=== PATIENT | female | born 1985 | race Caucasian/White ===

== ENCOUNTER → 2023-08-20 11:11 | Outpatient (REF) | payer BC, SELFPAY | LOC: PNTC 11:11 | PROVIDERS: ATTENDING PHYSICIAN Obstetrics & Gynecology | DX: Z36.0 Encounter for antenatal screening for chromosomal anomalies (principal); Z36.82 Encounter for antenatal screening for nuchal translucency | CPT/HCPCS: 76801; 76813 ==

== ENCOUNTER → 2023-09-10 10:43 | Outpatient (REF) | payer BC, SELFPAY | LOC: PNTC 10:43 | PROVIDERS: ATTENDING PHYSICIAN Obstetrics & Gynecology | DX: O99.210 Obesity complicating pregnancy, unspecified trimester (principal); O09.529 Supervision of elderly multigravida, unspecified trimester | CPT/HCPCS: 76805 ==

== ENCOUNTER → 2023-10-08 10:54 | Outpatient (REF) | payer BC, SELFPAY | LOC: PNTC 10:54 | PROVIDERS: ATTENDING PHYSICIAN Obstetrics & Gynecology | DX: O09.529 Supervision of elderly multigravida, unspecified trimester (principal); O99.210 Obesity complicating pregnancy, unspecified trimester | CPT/HCPCS: 76811 ==

== ENCOUNTER → 2023-12-01 14:12 | Outpatient (REF) | payer BC, SELFPAY | LOC: PNTC 14:12 | PROVIDERS: ATTENDING PHYSICIAN Obstetrics & Gynecology | DX: O99.210 Obesity complicating pregnancy, unspecified trimester (principal); O09.519 Supervision of elderly primigravida, unspecified trimester | CPT/HCPCS: 76816 ==

== ENCOUNTER → 2024-01-07 08:48 | Outpatient (REF) | payer BC, SELFPAY | LOC: PNTC 08:48 | PROVIDERS: ATTENDING PHYSICIAN Obstetrics & Gynecology | DX: O09.519 Supervision of elderly primigravida, unspecified trimester (principal); O99.210 Obesity complicating pregnancy, unspecified trimester | CPT/HCPCS: 59025; 76815 ==

== ENCOUNTER → 2024-01-21 09:00 | Outpatient (REF) | payer BC, SELFPAY | LOC: PNTC 09:00 | PROVIDERS: ATTENDING PHYSICIAN Obstetrics & Gynecology | DX: O09.519 Supervision of elderly primigravida, unspecified trimester (principal); R77.2 Abnormality of alphafetoprotein | CPT/HCPCS: 59025; 76815 ==

== ENCOUNTER → 2024-02-11 08:49 | Outpatient (REF) | payer BC, SELFPAY | LOC: PNTC 08:49 | PROVIDERS: ATTENDING PHYSICIAN Obstetrics & Gynecology | DX: O09.519 Supervision of elderly primigravida, unspecified trimester (principal) | CPT/HCPCS: 59025; 76815 ==

== ENCOUNTER → 2024-02-18 09:12 | Outpatient (REF) | payer BC, SELFPAY | LOC: PNTC 09:12 | PROVIDERS: ATTENDING PHYSICIAN Obstetrics & Gynecology | DX: O99.210 Obesity complicating pregnancy, unspecified trimester (principal); O09.529 Supervision of elderly multigravida, unspecified trimester | CPT/HCPCS: 59025; 76815 ==

== ENCOUNTER 2024-02-23 19:21 | Inpatient (IN) | payer BC, SELFPAY ==
[2024-02-23 19:38] VITALS: BP 124/73; BMI 35.1
[2024-02-23 20:00] LABS: % Basophils 0.4 % (0-2); % Eosinophils 0.4 % (0-6); % Lymphocytes 20.1 % (20.5-51.1); % Monocytes 6.2 % (1.7-9.3); % Neutrophils 71.9 % (42.2-75.2); Absolute Immature Granulocytes 0.1 10^3/uL (0-0.05); Absolute Lymphocytes 2.2 10^3/uL (1.2-3.4); Absolute Monocytes 0.7 10^3/uL (0.1-0.6); Absolute Neutrophils 7.8 10^3/uL (1.4-6.5); Hematocrit 35.6 % (37.0-47.0); Hemoglobin 12.3 g/dL (12.0-16.0); Mean Corp Hgb Conc. 34.6 g/dL (33.0-37.0); Mean Corpuscular Hgb 28.2 pg (27.0-31.0); Mean Corpuscular Volume 81.7 fL (81.0-99.0); Mean Platelet Volume 11.1 fL (7.4-10.4); Nucleated Red Blood Cells % 0 %; Platelet Count 179 10^3/uL (130-400); Red Blood Cell Count 4.36 10^6/uL (4.20-5.40); Red Cell Dist. Width 12.7 % (11.5-14.5); White Blood Cell Count 10.8 10^3/uL (4.8-10.8)
[2024-02-23] MEDS: CYTOTEC 25 MICROGRAM VAG (20:41)
[2024-02-23] MEDS: LR 1000 IV (23:41)
[2024-02-24] MEDS: CYTOTEC 50 MICROGRAM PO ×2 (01:01→05:01)
[2024-02-24] MEDS: PRENATAL PLUS 1 TABLET PO (08:32)
[2024-02-24] MEDS: LR 1000 IV (08:32)
[2024-02-24] MEDS: PITOCIN 30 UNITS/NSS 500 ML IV ×2 (08:33→14:36)
[2024-02-24] MEDS: XYLOCAINE-MPF 1% VIAL 30 ML INFIL (14:42)
[2024-02-24] MEDS: MOTRIN 600 MG PO (20:01)
[2024-02-24] MEDS: TYLENOL 650 MG PO (20:02)
[2024-02-25] MEDS: MOTRIN 600 MG PO ×2 (05:21→19:53)
[2024-02-25] MEDS: TYLENOL 650 MG PO ×2 (05:21→19:53)
[2024-02-25 05:40] LABS: Hematocrit 34.7 % (37.0-47.0); Hemoglobin 11.9 g/dL (12.0-16.0)
[2024-02-25 15:10] LABS: Syphilis/T. pallidum Ab Reflex Negative (Negative)
== END 2024-02-26 12:00 | disposition home or self-care (01) | DRG 807 ==
LOC: LDRP 19:21
PROVIDERS: Obstetrics & Gynecology; ADMITTING PHYSICIAN Obstetrics & Gynecology; FAMILY PHYSICIAN Family Medicine
PROC: 3E0P7VZ Introduction of Hormone into Female Reproductive, Via Natural or Artificial Opening (ICD-10-PCS; 2024-02-23)
PROC: 0HQ9XZZ Repair Perineum Skin, External Approach (ICD-10-PCS; 2024-02-24)
PROC: 10E0XZZ Delivery of Products of Conception, External Approach (ICD-10-PCS; 2024-02-24)
PROC: 3E033VJ Introduction of Other Hormone into Peripheral Vein, Percutaneous Approach (ICD-10-PCS; 2024-02-24)
PROC: 3E0DXGC Introduction of Other Therapeutic Substance into Mouth and Pharynx, External Approach (ICD-10-PCS; 2024-02-24)
DX: O75.89 Other specified complications of labor and delivery (principal); Z37.0 Single live birth; O28.1 Abnormal biochemical finding on antenatal screening of mother; Z3A.39 39 weeks gestation of pregnancy; O70.0 First degree perineal laceration during delivery; Z88.2 Allergy status to sulfonamides; Z85.820 Personal history of malignant melanoma of skin; O99.344 Other mental disorders complicating childbirth; F32.A Depression, unspecified
CPT/HCPCS: 88307; 36415; 85014; 85018; 85025; 86780; 86850; 86900; 86901